=== PATIENT | female | born 1950 | race Caucasian/White ===

== ENCOUNTER 2018-05-22 10:03 | Day surgery (SDC) | payer MEDICARE, OTHER ==
[2018-05-22] MEDS ORDERED: LIDOCAINE 2% (SDV) 5 ML INJ (11:37)
[2018-05-22] MEDS ORDERED: PROPOFOL 40 ML (11:37)
[2018-05-22] MEDS ORDERED: hydrALAzine 20 MG INJ IV (12:00)
[2018-05-22] MEDS ORDERED: EPHEDrine SULFATE 50 MG/5 ML SYG IV (12:00)
[2018-05-22] MEDS ORDERED: FENTAnyl 50 MCG/ML VIAL IV (12:00)
[2018-05-22] MEDS ORDERED: LABETALOL HCL 20MG INJ IV (12:00)
[2018-05-22] MEDS ORDERED: ONDANSETRON 4 MG INJ IV (12:00)
== END 2018-05-22 15:45 | disposition home or self-care (01) ==
LOC: GIL 10:03
DX: K31.89 Other diseases of stomach and duodenum (principal)
CPT/HCPCS: 43239